=== PATIENT | female | born 2005 | race Caucasian/White ===

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

== ENCOUNTER 2024-03-29 12:59 | Emergency (ER) | payer OTHER, MEDICAID ==
[~2024-03-29] VITALS: Ht 152.4 cm; Wt 56.8 kg
[~2024-03-29 12:59] MED LIST: CEPH-558 PO; PHEN-846 PO
[2024-03-29 13:02] VITALS: TEMP 98.1
[2024-03-29 14:19] LABS: COVID AG,FIA SOURCE NASAL SWAB
[2024-03-29 14:22] LABS: BASOPHILS % (AUTO) 0.6 % (0.0-2.0); HEMOGLOBIN 13.3 g/dL (12.0-16.0); LYMPHOCYTES # (AUTO) 1.3 K/uL (1.0-4.8); MEAN CORPUSCULAR HGB CONC 33.4 G/dL (31.0-37.0); MEAN CORPUSCULAR VOLUME 93 fL (80-100); MONOCYTES # (AUTO) 0.3 K/uL (0.1-1.0); MONOCYTES % (AUTO) 7.3 % (2.0-9.0); NEUTROPHILS # (AUTO) 2.8 K/uL (1.8-7.7); NEUTROPHILS % (AUTO) 62.1 % (40.0-70.0); PLATELET COUNT (AUTO) 269 K/uL (150-450); RED CELL DISTRIBUTION WIDTH 12.7 % (11.5-14.5); WHITE BLOOD COUNT (AUTO) 4.6 K/uL (4.5-11.0)
[2024-03-29 14:24] LABS: SARS-COV2 (COVID) ANTIGEN,FIA Negative (Negative)
[2024-03-29 14:24] LABS: APPEARANCE,URINE CLEAR (CLEAR); BILIRUBIN,URINE NEGATIVE (NEGATIVE); COLOR,URINE COLORLESS (YELLOW); GLUCOSE, URINE (UA) NEGATIVE (NEGATIVE); KETONES,URINE NEGATIVE (NEGATIVE); LEUKOCYTE ESTERASE ,URINE NEGATIVE (NEGATIVE); NITRATE,URINE NEGATIVE (NEGATIVE); OCCULT BLOOD,URINE NEGATIVE (NEGATIVE); PROTEIN,URINE NEGATIVE (NEGATIVE); SPECIFIC GRAVITIY, URINE 1.014 (1.003-1.030); UROBILINOGEN,URINE <=1.0 mg/dL (<=1.0)
[2024-03-29 14:25] LABS: BACTERIA,URINE None Seen /HPF (None Seen); HCG,QUAL URINE NEGATIVE (NEGATIVE); RBC,URINE None Seen /HPF (0-2); SQUAMOUS EPITHELIAL CELL,UR Rare /LPF (None Seen); WBC,URINE None Seen /HPF (0-5)
[2024-03-29 14:30] LABS: ANION GAP 9 mmol/L (8-16); CALCIUM, TOTAL 9.2 mg/dL (8.8-10.5); CARBON DIOXIDE 26 mmol/L (22-29); CHLORIDE 104 mmol/L (98-107); CREATININE 0.55 mg/dL (0.60-1.30); GLOMERULAR FILTR. RATE CALC > 60 mL/min (>60); GLUCOSE,RANDOM 91 mg/dL (70-110); POTASSIUM 3.7 mmol/L (3.5-5.1); SODIUM SERUM 139 mmol/L (136-145); UREA NITROGEN, BLOOD 8 mg/dL (7-18)
[2024-03-29 14:42] LABS: INFLUENZA TYPE A NEGATIVE FOR TYPE A (NEGATIVE); INFLUENZA TYPE B NEGATIVE FOR TYPE B (NEGATIVE)
[2024-03-29 15:10] VITALS: BP 120/72; PULSE 80; RESP 16
== END 2024-03-29 15:17 | disposition home or self-care (01) ==
LOC: EMS 12:59
DX: R53.83 Other fatigue (principal); R53.1 Weakness; Z88.6 Allergy status to analgesic agent; Z20.822 Contact with and (suspected) exposure to COVID-19
CPT/HCPCS: 80048; 81001; 84703; 85025; 87804; 99283

== ENCOUNTER 2025-08-04 00:58 | Emergency (ER) | payer MEDICAID, OTHER ==
[~2025-08-04] VITALS: Ht 149.9 cm; Wt 51.8 kg
[2025-08-04 01:07] VITALS: BP 124/85; PULSE 84; RESP 18; TEMP 98.1; O2SAT 98
== END 2025-08-04 02:18 | disposition left against medical advice (07) ==
LOC: EMS 00:59
DX: M79.645 Pain in left finger(s) (principal); Z53.21 Procedure and treatment not carried out due to patient leaving prior to being seen by health care provider
CPT/HCPCS: 99281; Z7502